=== PATIENT | male | born 1990 | race American Indian/Alaskan Native ===

== ENCOUNTER 2017-12-14 14:40 | Emergency (ER) | payer SELFPAY ==
[2017-12-14 16:02] VITALS: BP 120/82
== END 2017-12-14 18:07 | disposition left against medical advice (07) ==
LOC: ED 14:40
DX: R07.0 Pain in throat (principal); Z53.21 Procedure and treatment not carried out due to patient leaving prior to being seen by health care provider

== ENCOUNTER 2018-03-23 15:30 | Emergency (ER) | payer SELFPAY ==
[2018-03-23 16:29] VITALS: BP 120/71
--- NOTE | 2018-03-23 18:14 | XRay Report ---
FINAL REPORT EXAM: XR HAND 3+V LT HISTORY: LEFT HAND SWELLING AND INJURY WITH DEFORMITY TECHNIQUE: AP, lateral, and oblique views of the left hand PRIORS: None. FINDINGS: At this time, I do not know the location of the patient's pain. There is a bowing involving the neck of the 5th metacarpal but no definite fracture line is seen. I cannot exclude a fracture in this area however. There is soft tissue swelling over the dorsum of the metacarpals. There is no other evidence for acute fracture or dislocation. No radiopaque foreign bodies are seen. Bony mineralization is normal and joint spaces are maintained. IMPRESSION: Bowing involving the neck of the 5th metacarpal which could be due to fracture although an acute fracture line is not visualized. Swelling over the dorsum of the metacarpals is seen.
--- NOTE | 2018-03-23 20:50 | Emergency Department Report ---
Upper Extremity - HPI Chief Complaint: Extremity Injury, Upper Stated Complaint: LEFT HAND INJURY Time Seen by Provider: 03/23/18 20:44 Upper Extremity: Left Hand Occurred When: Today Mechanism: Fall Severity: moderate Symptoms: Yes Pain with Movement, Yes Limited Range of Movement, Yes Swelling, Yes Bruising/Ecchymosis, No Deformity, No Numbness, No Weakness, No Laceration or Abrasion Other History: 27-year-old [place] male comes in complaining of left hand pain and swelling. Patient reports that he has slipped and fall forward. Patient denies any past medical history currently takes no medications and has no known drug allergies. ED Review of Systems ROS: Stated complaint: LEFT HAND INJURY Other details as noted in HPI Comment: All other systems reviewed and negative Musculoskeletal: joint swelling (left hand), arthralgia (lt hand). denies: back pain ED Past Medical Hx - Past Medical History Previous Medical History?: No - Surgical History Past Surgical History?: Yes Additional Surgical History: RIGHT Knee surgery - Social History Smoking Status: Current Every Day Smoker - Medications Home Medications: Home Medications Medication Instructions Recorded Confirmed Last Taken Type Ibuprofen [Motrin 800 MG tab] 800 mg PO Q8HR PRN #30 tablet 03/23/18 Unknown Rx Upper Extremity Exam - Exam General: Vital signs noted. No distress. Alert and acting appropriately. Head and Torso: No HEENT Abnormality, No Neck Tenderness, No Chest/Lungs Abnormality, No Abdominal Tenderness, No Back Tenderness Shoulder Exam: Yes Normal Range of Motion in Shoulder, No Shoulder Tenderness, No Clavicle Tenderness, No Shoulder Deformity, No AC Joint Tenderness Arm Exam: No Arm/Humerus Tenderness, No Arm Deformity Elbow: No Elbow Tenderness, No Normal Range of Motion in Elbow, No Elbow Deformity Forearm: No Forearm Tenderness, No Forearm Deformity, No Pain with Pronation, No Pain with Supination Wrist: Yes Normal ROM in Wrist, No Wrist Tenderness, No Wrist Deformity, No Snuffbox Tenderness, No Pain with Axial Thumb Compression Hand: Yes Hand Tenderness (3rd and 4th digit), No Hand Deformity, No Digit Tenderness, No Digit(s) Deformity, No Tendon Dysfunction CMS Exam: No Broken Skin, No Normal Distal Pulses, No Normal Capillary Refill, No Normal Distal Sensation ED Course Vital Signs 03/23/18 16:26 Temperature 98.3 F Pulse Rate 73 Respiratory 20 Rate Blood Pressure 120/71 O2 Sat by Pulse 99 Oximetry ED Medical Decision Making - Radiology Data Radiology results: report reviewed, image reviewed FINDINGS: At this time, I do not know the location of the patient's pain. There is a bowing involving the neck of the 5th metacarpal but no definite fracture line is seen. I cannot exclude a fracture in this area however. There is soft tissue swelling over the dorsum of the metacarpals. There is no other evidence for acute fracture or dislocation. No radiopaque foreign bodies are seen. Bony mineralization is normal and joint spaces are maintained. IMPRESSION: Bowing involving the neck of the 5th metacarpal which could be due to fracture although an acute fracture line is not visualized. Swelling over the dorsum of the metacarpals is seen. Transcribed By: [facility] Dictated By: LAURA DE LA O MD Electronically Authenticated By: LAURA DE LA O MD Signed Date/Time: 03/23/181809 DD/ 09 TD/TT: 03/23/181809 - Medical Decision Making Assessment evaluated by this provider fast track. X-ray shows patient has a old fracture to his left fifth metacarpal. Patient is aware that he has a boxer 's fracture. Patient complains mostly of pain in the third and fourth digit of the hand. Patient was offered ibuprofen orally he declined prefers to have a shot discussed the patient I give him a Toradol injection for pain. Discussed the patient that we'll place him in a short volar splint and to refer to orthopedist for further evaluation. Critical care attestation.: If time is entered above; I have spent that time in minutes in the direct care of this critically ill patient, excluding procedure time. ED Disposition Clinical Impression: Injury of hand, left Qualifiers: Encounter type: initial encounter Qualified Code(s): S69.92XA - Unspecified injury of left wrist, hand and finger(s), initial encounter Disposition: DC-01 TO HOME OR SELFCARE Is pt being admited?: No Does the pt Need Aspirin: No Condition: Stable Instructions: Arthralgia (ED) Additional Instructions: Please take pain medication as prescribed. It's important free to follow up with an orthopedist. I listed several below. Prescriptions: Ibuprofen [Motrin 800 MG tab] 800 mg PO Q8HR PRN #30 tablet PRN Reason: Pain Referrals: PRIMARY CARE, [Primary Care Provider] - 3-5 Days ASHLEY NG MD [Staff Physician] - 3-5 Days VICKY RODRIGUEZ MD [Staff Physician] - 3-5 Days Forms: Work/School Release Form(ED)
[2018-03-23] MEDS ORDERED: TORADOL IM ONE (20:51)
== END 2018-03-23 21:20 | disposition home or self-care (01) ==
LOC: ED 15:30
DX: S69.82XA Other specified injuries of left wrist, hand and finger(s), initial encounter (principal); M21.832 Other specified acquired deformities of left forearm; F17.200 Nicotine dependence, unspecified, uncomplicated; Z91.018 Allergy to other foods; W01.0XXA Fall on same level from slipping, tripping and stumbling without subsequent striking against object, initial encounter; Y93.89 Activity, other specified; Y99.8 Other external cause status; Y92.89 Other specified places as the place of occurrence of the external cause
CPT/HCPCS: 29125; 73130; 96372; 99283; J1885